=== PATIENT | female | born 1985 | race Hispanic/Latino ===

== ENCOUNTER 2020-11-12 13:39 | Emergency (ER) | payer SELFPAY ==
[~2020-11-12] VITALS: Ht 172.7 cm; Wt 104.3 kg
[2020-11-12] MEDS ORDERED: IBUPROFEN 600 MG TAB PO STA (15:23)
[2020-11-12] MEDS ORDERED: MEDROL4 MG PO (15:26)
[2020-11-12] MEDS ORDERED: PREDNISONE 20 MG TAB PO ONE (15:30)
[2020-11-12] MEDS ORDERED: IBUPROFEN600 MG PO (15:34)
[2020-11-12] MEDS ORDERED: PREDNISONE 20 MG TAB ONE (15:41)
[2020-11-12] MEDS ORDERED: IBUPROFEN 600 MG TAB ONE (15:41)
== END 2020-11-12 15:44 | disposition home or self-care (01) ==
LOC: FSED 14:08
DX: J02.9 Acute pharyngitis, unspecified (principal); J06.9 Acute upper respiratory infection, unspecified
CPT/HCPCS: 83518; 99283; J7512